=== PATIENT | male | born 1995 | race Caucasian/White ===

== ENCOUNTER 2021-10-22 08:00 | Outpatient (CLI) | payer OTHER | END 2021-10-22 23:59 | disposition home or self-care (01) | LOC: LAB 08:00 | PROVIDERS: ATTEND Nurse Practitioner | DX: R07.0 Pain in throat (principal) | CPT/HCPCS: 87070; 87077 ==

== ENCOUNTER 2023-08-01 12:24 | Emergency (ER) | payer OTHER ==
[2023-08-01 12:44] VITALS: O2SAT 98
[2023-08-01] MEDS ORDERED: CYCLOBENZAPRINE 10 MG TABLET PO STA (15:59)
--- NOTE | 2023-08-01 16:26 | ED Physician Documentation ---
PD HPI BACK PAIN - Stated complaint Stated Complaint: LOWER BACK PX - Chief complaint Chief Complaint: Back Pain - Additional information Additional information: 28-year-old male presents emergency department for acute onset back pain. Enio nt states he was bending over doing the dishes when he felt a sharp twinging pain in his lower back that is now radiating down to his left leg. Patient denies any history of any back injury or if anything ever happened to him like this before. He denies any history of IV drug use no back surgeries, no bowel or urinary incontinence. Patient is able to ambulate no weakness but says that he is taken Tylenol and ibuprofen with minimal relief. PD PAST MEDICAL HISTORY - Past Medical History Past Medical History: Yes Cardiovascular: None Respiratory: None Neuro: None Endocrine/Autoimmune: None GI: None HEENT: None Psych: Depression, Anxiety Musculoskeletal: None Derm: None - Past Surgical History Past Surgical History: No - Present Medications Home Medications: Ambulatory Orders Medication Instructions Recorded Confirmed Cyclobenzaprine [Flexeril] 10 mg PO TID PRN 4 Days #12 tablet 08/01/23 - Allergies Allergies/Adverse Reactions: Allergies Allergy/AdvReac Type Severity Reaction Status Date / Time No Known Drug Allergies Allergy Verified 08/01/23 12:39 - Social History Does the pt smoke?: No Smoking Status: Never smoker Does the pt drink ETOH?: No Does the pt have substance abuse?: No - Immunizations Immunizations are current?: Yes PD ED PE NORMAL - Vitals Vital signs reviewed: Yes - General General: Alert and oriented X 3, No acute distress, Well developed/nourished - Neck Neck: No bony TTP - Cardiac Cardiac: RRR - Respiratory Respiratory: No respiratory distress - Abdomen Abdomen: Soft - Back Back: No CVA TTP, No spinal TTP - Derm Derm: Normal color, No rash - Extremities Extremities: No deformity, No edema - Neuro Neuro: Alert and oriented X 3, 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 Normal sensation in all areas of the legs. Patient denies saddle anesthesia. Normal strength in flexion-extension at the ankles, knees, and flexion of the hips. Results - Vitals Vitals: Vital Signs - 24 hr 08/01/23 08/01/23 12:40 16:38 Temperature 36.8 C Heart Rate 50 L 70 Respiratory 16 18 Rate Blood Pressure 126/68 131/74 H O2 Saturation 98 98 Oxygen O2 Source Room air PD Medical Decision Making - ED course ED course: This patient presents with back pain most consistent with lumbago w/left sided sciatica. Differential diagnoses includes lumbago versus musculoskeletal spasm / strain versus sciatica. Left straight leg raise test was positive. No back pain red flags on history or physical. Presentation not consistent with malignancy (lack of history of malignancy), fracture (no trauma, no bony tenderness to palpation), cauda equina (no bowel or urinary incontinence/retention, no saddle anesthesia, no distal weakness), AAA, viscus perforation, osteomyelitis or epidural abscess (no IVDU, vertebral tenderness, hx of back surgeries or procedures), renal colic, pyelonephritis (afebrile, no CVAT, no urinary symptoms). Given the clinical picture, no indication for imaging at this time. 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 He was given strict ER return precautions told to follow-up with primary care provider for physical therapy referral and to make sure that he continues to ambulate and move frequently to help with the recovery of his back strain. Departure - Departure Disposition: 01 Home, Self Care Clinical Impression: Sciatica Qualifiers: Laterality: left Qualified Code(s): M54.32 - Sciatica, left side Instructions: ED Exercises Lumbar Muscles, ED Sciatica Prescriptions: Cyclobenzaprine [Flexeril] 10 mg PO TID PRN 4 Days #12 tablet PRN Reason: Spasms Comments: Thank you for trusting us with your care as we discussed with lower back injuries it is very important to continue to move around frequently to prevent from worsening stiffness and back pain. I have sent a prescription of muscle relaxers to [facility] in [facility]. You will take 1 pill every 8 hours as needed for pain. Do not drive or operate heavy machinery while taking muscle relaxers. Continue to alternate between 1000 mg of Tylenol every 8 hours and c onsider doing Aleve (2 tablets) every 12 hours instead of ibuprofen to help with your pain. You can do 20 minutes of ice at a time with 1 hour off. Continue to move around and do some gentle range of motion exercises. Please come back to the emergency department if you are starting to experience any bowel or urinary incontinence, fevers or chills, or worsening or concerning symptoms. Discharge Date/Time: 08/01/23 16:40
[2023-08-01 16:51] VITALS: BP 131/74
== END 2023-08-01 16:40 | disposition home or self-care (01) ==
LOC: ED 12:24
DX: M54.32 Sciatica, left side (principal)
CPT/HCPCS: 99282; 99283; A9270